=== PATIENT | female | born 1955 | race Caucasian/White ===

== ENCOUNTER 2020-12-31 20:40 | Emergency (ER) | payer MEDICARE, OTHER ==
[2020-12-31] MEDS: Sodium Chloride 0.9% 10 ML Syringe FLUSH ONE ×2 (22:50→23:05)
[2020-12-31] MEDS ORDERED: Iopamidol 612 MG/ML 100 ML Bottle IV SCH (23:00)
[2020-12-31] MEDS ORDERED: Sodium Chloride 0.9% 100 ML IV SCH (23:00)
--- NOTE | 2021-01-01 00:10 | CRLCT ---
For Patients: As a result of the Century Cures Act, medical imaging exams and procedure reports are released immediately into your electronic medical record. You may view this report before your referring provider. If you have questions, please contact your health care provider. Indication: Constipation Technique: Contrast enhanced axial CT imaging through the abdomen and pelvis. 100 mL Isovue-300 contrast agent was administered intravenously. Sagittal and coronal reconstructions are provided. Comparison: None Findings: There is diverticulosis of the descending and sigmoid colon. Superimposed circumferential wall thickening involving the distal sigmoid colon, with surrounding edema are consistent with changes of acute diverticulitis. There is no extraluminal air to suggest perforation. There is no pericolonic abscess. Remainder of the colon is unremarkable. The appendix is noninflamed. There is normal caliber of the small bowel. Surgical changes at the gastroesophageal junction suggests prior fundoplication. No abnormalities are demonstrated relating to the liver, spleen, pancreas, adrenal glands, and kidneys. Cholecystectomy clips are noted. The portal vein is patent. The abdominal aorta is normal in caliber. There is no abdominal or pelvic lymphadenopathy. The urinary bladder, uterus, and right ovary are unremarkable. A small cystic focus is noted in the left ovary, likely of no clinical significance. The osseous structures are unremarkable. The included lung bases are clear. Impression: Acute diverticulitis of the distal sigmoid colon. No evidence of colonic perforation or pericolonic abscess. Please note that all CT scans at this facility use dose modulation, iterative reconstruction, and/or weight-based dosing when appropriate to reduce radiation dose to as low as reasonably achievable. Dictated by Anneliese Guerrero MD @ 01/01/2021 12:09:30 AM (Electronically Signed)
[2021-01-01] MEDS ORDERED: Levofloxacin/Dextrose 5%-Water 750 MG in Premix Bag 1 BAG IV ONE (00:27)
[2021-01-01] MEDS ORDERED: metroNIDAZOLE/Normal Saline 500 MG in Premix Bag 1 BAG IV ONE (00:28)
[2021-01-01] MEDS ORDERED: Magnesium Citrate Solution 296 ML Bottle PO ONE (00:29)
--- NOTE | 2021-01-01 00:38 | EDM.PDOC ---
ED HPI GENERAL MEDICAL PROBLEM - General Chief Complaint: Gastrointestinal Problem Stated Complaint: 3-4 DAYS WITHOUT BOWEL MOVEMENT Time Seen by Provider: 01/01/21 00:29 Source of Information: Reports: Patient History Limitations: Reports: No Limitations - History of Present Illness INITIAL COMMENTS - FREE TEXT/NARRATIVE: pt is having difficulty passing gas and she has not had a stool for 3-4 days. She normally has loose stools. She has not carley vomiting. She feels like her abdoman is distended but she is not having severe pain. Onset: Gradual, Other ( last 2-3 days. ) Duration: Day(s): Location: Reports: Abdomen Associated Symptoms: Reports: Loss of Appetite, Other ( constipation) Abdomen Pain Score (Numeric/FACES): 4 - Related Data Allergies Allergy/AdvReac Type Severity Reaction Status Date / Time No Known Allergies Allergy Verified 01/06/21 07:33 Home Meds: Home Meds Erythromycin Base [Erythromycin 0.5% Ophth Oint] 1 dose TOP DAILY 06/13/13 [History] Ciprofloxacin [Ciprofloxacin HCl] 500 mg PO BID 01/06/21 [History] metroNIDAZOLE [Metronidazole] 500 mg PO TID 01/06/21 [History] Past Medical History HEENT History: Reports: Other (See Below) Other HEENT History: chronic dry eye Gastrointestinal History: Reports: Chronic Diarrhea [employer] History: Reports: Musculoskeletal History: Reports: Arthritis - Infectious Disease History Infectious Disease History: Reports: Chicken Pox, Measles - Past Surgical History GI Surgical History: Reports: Cholecystectomy, Radha Fundoplication Musculoskeletal Surgical History: Reports: Other (See Below) Other Musculoskeletal Surgeries/Procedures:: plate to wrist and ankle Social & Family History - Tobacco Use Tobacco Use Status *Q: Never Tobacco User - Caffeine Use Caffeine Use: Reports: Coffee, Tea - Recreational Drug Use Recreational Drug Use: No ED ROS GENERAL - Review of Systems Review Of Systems: See Below Constitutional: Reports: Weakness, Decreased Appetite HEENT: Reports: No Symptoms Respiratory: Reports: No Symptoms Cardiovascular: Reports: No Symptoms Endocrine: Reports: No Symptoms GI/Abdominal: Reports: Abdominal Pain, Constipation, Other ( feeling of being bloated. ) : Reports: No Symptoms Musculoskeletal: Reports: No Symptoms Skin: Reports: No Symptoms Neurological: Reports: No Symptoms ED EXAM, GI/ABD - Physical Exam Exam: See Below Text/Narrative:: pt comes with a history of having no stools for the past 3-4 days. She is having difficulty passing gas. She normally has looser stools. Exam Limited By: No Limitations General Appearance: Alert, Mild Distress Ears: Normal TMs Nose: Normal Inspection Throat/Mouth: Normal Inspection Head: Atraumatic Respiratory/Chest: No Respiratory Distress Cardiovascular: Regular Rate, Rhythm GI/Abdominal Exam: Other (pt had mild tenderness in the left upper abdoman. ) (Female) Exam: Deferred Rectal (Female) Exam: Deferred Back Exam: Normal Inspection Extremities: Normal Inspection Neurological: Alert, Oriented, Normal Cognition Psychiatric: Anxious Course - Vital Signs Last Recorded V/S: Last Vital Signs Temp 36.7 C 12/31/20 21:20 Pulse 83 12/31/20 21:20 Resp 16 12/31/20 21:20 BP 147/82 H 12/31/20 21:20 Pulse Ox 95 12/31/20 21:20 - Orders/Labs/Meds Labs: Laboratory Tests 12/31/20 12/31/20 12/31/20 Range/Units 21:40 21:48 21:48 WBC 8.0 (4.5-11.0) K/uL RBC 4.46 (3.30-5.50) M/uL Hgb 13.0 (12.0-15.0) g/dL Hct 40.0 (36.0-48.0) % MCV 90 (80-98) fL MCH 29 (27-31) pg MCHC 33 (32-36) % Plt Count 395 (150-400) K/uL Neut % (Auto) 64.1 (36-66) % Lymph % (Auto) 20.8 L (24-44) % [place] % (Auto) 12.3 H (2-6) % Eos % (Auto) 2.1 (2-4) % Baso % (Auto) 0.7 (0-1) % Sodium 140 (140-148) mmol/L Potassium 4.2 (3.6-5.2) mmol/L Chloride 102 (100-108) mmol/L Carbon Dioxide 29 (21-32) mmol/L Anion Gap 8.9 (5.0-14.0) mmol/L BUN 14 (7-18) mg/dL Creatinine 0.8 (0.6-1.0) mg/dL Est Cr Clr Drug Dosing 62.24 mL/min Estimated GFR (MDRD) > 60 (>60) Glucose 97 (74-106) mg/dL Calcium 8.6 (8.5-10.1) mg/dL Total Bilirubin 0.5 (0.2-1.0) mg/dL AST 17 (15-37) U/L ALT 30 (12-78) U/L Alkaline Phosphatase 91 (46-116) U/L C-Reactive Protein 7.44 H (0.0-0.3) mg/dL Total Protein 7.0 (6.4-8.2) g/dL Albumin 3.6 (3.4-5.0) g/dL Globulin 3.4 (2.3-3.5) g/dL Albumin/Globulin Ratio 1.1 L (1.2-2.2) Meds: Medications Discontinued Medications Generic Name Dose Route Start Last Admin Trade Name Freq PRN Reason Stop Dose Admin Sodium Chloride 100 mls @ 3 mls/sec 12/31/20 23:00 12/31/20 23:05 Normal Saline IV 3 mls/sec ASDIRECTED KATELYN Administration Levofloxacin/Dextrose 750 mg/ 150 mls @ 100 mls/hr 01/01/21 00:27 01/01/21 00:50 Premix IV 01/01/21 01:56 100 mls/hr ONETIME ONE Administration Metronidazole 500 mg/ Premix 100 mls @ 100 mls/hr 01/01/21 00:28 01/01/21 00:50 IV 01/01/21 01:27 100 mls/hr ONETIME ONE Administration Iopamidol 100 ml 12/31/20 23:00 12/31/20 23:05 Iopamidol 612 Mg/Ml 100 Ml Bottle IV 100 ml . DIRECTED KATELYN Administration Magnesium Citrate 296 ml 01/01/21 00:29 01/01/21 00:58 Magnesium Citrate Solution 296 Ml Bottle PO 01/01/21 00:30 296 ml ONETIME ONE Administration Ondansetron HCl 4 mg 01/01/21 02:10 01/01/21 02:17 Ondansetron 4 Mg/2 Ml Sdv IVPUSH 01/01/21 02:11 4 mg ONETIME ONE Administration Sodium Chloride 10 ml 12/31/20 22:49 12/31/20 23:05 Sodium Chloride 0.9% 10 Ml Syringe FLUSH 12/31/20 22:50 10 ml ONETIME ONE Administration - Re-Assessments/Exams Free Text/Narrative Re-Assessment/Exam: 01/01/21 00:43 flat and upriht was obtained which showed dilated loops of bowel in the left upper abdoman. A rectal exam revealed no stool in the rectum. A cat scan of the abdoman was obtained which showed acute diverticulitis of the sigmoid colon. There is no suggestion of perforation. Pt was given levoquin 750 iv and flagyl 500mg iv . She did drink a bottle of mag citrate. 01/11/21 22:33 she did drink 1/2 bottle of mag citrate and she had multiple loose stools before leaving the ER Departure - Departure Time of Disposition: 02:35 Disposition: Home, Self-Care 01 Condition: Fair Clinical Impression: Diverticulitis - Discharge Information Instructions: Diverticulitis Referrals: Teddy Zavaleta MD [Primary Care Provider] - Forms: ED Department Discharge Care Plan Goals: While inflamed use low fiber foods. Try to get the stools to start coming with some mag citrate and later strained prunes. Appt with Dr Zavaleta in 2 days. Cipro 500mg Twice (2) daily, Flagyl 500mg Three (3) times per day. Sepsis Event Note (ED) - Evaluation Sepsis Screening Result: No Definite Risk
[2021-01-01] MEDS ORDERED: Ondansetron 4 MG/2 ML SDV IVPUSH ONE (02:10)
--- NOTE | 2021-01-01 09:14 | CR ---
Abdomen 2V AP Flat Upright CLINICAL HISTORY: Constipation FINDINGS: There are scattered air-filled loops of small bowel with a few scattered air-fluid levels. Gas pattern is nonspecific. There is gas and feces throughout the colon. No free air is seen. There is previous epigastric surgery IMPRESSION: Mild small bowel dilatation a nonspecific pattern No free air. Fecal retention right colon
== END 2021-01-01 02:34 | disposition home or self-care (01) ==
LOC: JP.ED 20:40
DX: K57.32 Diverticulitis of large intestine without perforation or abscess without bleeding (principal)
CPT/HCPCS: 36415; 74019; 74177; 80053; 85025; 86140; 96365; 96368; 96375; 99284; A9270; J1956; J2405; J3490; Q9967

== ENCOUNTER 2021-01-06 07:11 | Emergency (ER) | payer MEDICARE, OTHER ==
--- NOTE | 2021-01-06 07:59 | EDM.PDOC ---
ED HPI GENERAL MEDICAL PROBLEM - General Chief Complaint: Abdominal Pain Stated Complaint: DIVERTICULITIS ISSUES PER PATIENT Time Seen by Provider: 01/06/21 07:43 Source of Information: Reports: Patient History Limitations: Reports: No Limitations - History of Present Illness INITIAL COMMENTS - FREE TEXT/NARRATIVE: 65-year-old female who was seen in the emergency room 4 days ago with decreased bowel movements and fullness in her abdomen, diagnosed with diverticulitis. Started on IV antibiotics initially then oral antibiotics as an outpatient. She was rechecked 2 days ago by her primary provider and was encouraged to continue with the oral antibiotics. She is back today because she is "weak", has a persistent foamy reflux and just does not feel like she is progressing. She is stilling having some lower abdominal discomfort. No fevers or chills, some loose stools, she is taking stool softeners and drinking water. She is just tired of being sick. She has not had her Covid vaccinations. She does not complain of shortness of breath or cough. Duration: Day(s): Location: Reports: Abdomen (Lower abdominal discomfort) Associated Symptoms: Reports: Weakness, Other (She complains of a persistent foamy respiratory or gastric reflux) Abdomen Pain Score (Numeric/FACES): 2 - Related Data Allergies Allergy/AdvReac Type Severity Reaction Status Date / Time No Known Allergies Allergy Verified 01/06/21 07:33 Home Meds: Home Meds Erythromycin Base [Erythromycin 0.5% Ophth Oint] 1 dose TOP DAILY 06/13/13 [History] Ciprofloxacin [Ciprofloxacin HCl] 500 mg PO BID 01/06/21 [History] metroNIDAZOLE [Metronidazole] 500 mg PO TID 01/06/21 [History] Past Medical History HEENT History: Reports: Other (See Below) Other HEENT History: chronic dry eye Gastrointestinal History: Reports: Chronic Diarrhea, Diverticulosis [employer] History: Reports: Musculoskeletal History: Reports: Arthritis - Infectious Disease History Infectious Disease History: Reports: Chicken Pox, Measles - Past Surgical History GI Surgical History: Reports: Cholecystectomy, Radha Fundoplication Musculoskeletal Surgical History: Reports: Other (See Below) Other Musculoskeletal Surgeries/Procedures:: plate to wrist and ankle Social & Family History - Tobacco Use Tobacco Use Status *Q: Never Tobacco User - Caffeine Use Caffeine Use: Reports: Coffee, Tea - Recreational Drug Use Recreational Drug Use: No ED ROS GENERAL - Review of Systems Review Of Systems: See Below Constitutional: Reports: Malaise, Decreased Appetite. Denies: Fever, Chills HEENT: Reports: No Symptoms Respiratory: Denies: Shortness of Breath, Cough Cardiovascular: Denies: Chest Pain, Palpitations Endocrine: Reports: Fatigue GI/Abdominal: Reports: Abdominal Pain, Decreased Appetite. Denies: Vomiting : Reports: No Symptoms Skin: Reports: No Symptoms Neurological: Reports: Weakness ED EXAM, GENERAL - Physical Exam Exam: See Below Exam Limited By: No Limitations General Appearance: Alert, No Apparent Distress, Other (Patient is tearful, appears tired) Eye Exam: Bilateral Eye: Normal Inspection (Good hydration, no jaundice) Throat/Mouth: Normal Inspection Head: Atraumatic Respiratory/Chest: No Respiratory Distress Cardiovascular: Regular Rate, Rhythm. No: Tachycardia GI/Abdominal: Soft, Tender (Tender to palpation across the lower abdomen, left lower quadrant worse than the right but no significant guarding or rebound), Other (Somewhat hypoactive bowel sounds but present) Extremities: Normal Inspection. No: Pedal Edema Neurological: Alert, Oriented Psychiatric: Depressed Mood, Flat Affect, Tearful Skin Exam: Warm, Dry Course - Vital Signs Last Recorded V/S: Last Vital Signs Temp 98.7 F 01/06/21 07:30 Pulse 82 01/06/21 07:30 Resp 16 01/06/21 07:30 BP 141/86 H 01/06/21 07:30 Pulse Ox 93 L 01/06/21 07:30 - Orders/Labs/Meds Labs: Laboratory Tests 01/06/21 01/06/21 01/06/21 Range/Units 07:52 08:03 08:03 WBC 6.5 (4.5-11.0) K/uL RBC 4.71 (3.30-5.50) M/uL Hgb 13.7 (12.0-15.0) g/dL Hct 42.0 (36.0-48.0) % MCV 89 (80-98) fL MCH 29 (27-31) pg MCHC 33 (32-36) % Plt Count 444 H (150-400) K/uL Neut % (Auto) 64.6 (36-66) % Lymph % (Auto) 19.4 L (24-44) % [place] % (Auto) 12.0 H (2-6) % Eos % (Auto) 3.1 (2-4) % Baso % (Auto) 0.9 (0-1) % Sodium 140 (140-148) mmol/L Potassium 4.6 (3.6-5.2) mmol/L Chloride 103 (100-108) mmol/L Carbon Dioxide 30 (21-32) mmol/L Anion Gap 6.9 (5.0-14.0) mmol/L BUN 11 (7-18) mg/dL Creatinine 0.9 (0.6-1.0) mg/dL Est Cr Clr Drug Dosing 55.33 mL/min Estimated GFR (MDRD) > 60 (>60) Glucose 99 (74-106) mg/dL Calcium 9.0 (8.5-10.1) mg/dL SARS-CoV-2 RNA (LALIT) Negative (NEGATIVE) - Re-Assessments/Exams Free Text/Narrative Re-Assessment/Exam: 01/06/21 07:59 CBC, BMP were repeated as well as a CT of the abdomen. Covid was obtained, results are pending. 01/06/21 09:07 Labs were reassuring, white count was normal, BMP normal, and CT confirmed that the inflammatory changes of diverticulitis were improving. Covid was negative. Patient was encouraged to continue with hydration, increase diet as tolerated, and continue with antibiotics until done. Departure - Departure Time of Disposition: 09:23 Disposition: Home, Self-Care 01 Clinical Impression: Diverticulitis - Discharge Information Instructions: Diverticulitis, [id number] Referrals: Teddy Zavlaeta MD [Primary Care Provider] - Forms: ED Department Discharge Care Plan Goals: Continue with antibiotics as prescribed, advance diet and activity as tolerated. Stay hydrated and consider rechecking in 2 to 3 days if not improving satisfactorily. Sepsis Event Note (ED) - Focused Exam Vital Signs: Vital Signs Temp Pulse Resp BP Pulse Ox 01/06/21 07:30 98.7 F 82 16 141/86 H 93 L 01/06/21 07:25 98.7 F 82 16 141/86 H 93 L
--- NOTE | 2021-01-06 08:59 | CT ---
Abdomen Pelvis wo Cont CLINICAL HISTORY: Diverticulitis COMPARISON: 12/31/2020. TECHNIQUE: Axial tomographic images are obtained from the dome of the diaphragm to the pubic symphysis without IV contrast enhancement. No oral contrast was used. The dosage reduction and iterative reconstruction techniques employed. FINDINGS: The lung bases are clear no free air is identified.. There has been a previous Radha procedure The liver shows no mass or biliary dilatation. The gallbladder has been removed. The spleen has a normal size and shape. The pancreas shows no mass or inflammatory change. The adrenal glands appear normal bilaterally. There is a nonobstructing punctate calcification in the midpole of the left kidney. The ureters have a normal course and caliber. The bladder has a normal contour. There are cyst tiny calcifications in the region of the urethra or periureteric soft tissues. The aorta shows atheromatous plaque without calcification. There is no suspicious retroperitoneal adenopathy. The small intestinal configuration is nonacute. There is gas and feces throughout the colon. Patient has moderate sigmoid diverticulosis. There is a section of thickening in the mid to distal sigmoid. This has diminished slightly since prior study. Inflammatory change and stranding in the pericolic fat has diminished since prior study. No abnormal fluid collections are identified. IMPRESSION: Mild thickening of the sigmoid colon with the decrease in inflammatory change when compared to the study from 12/31/2020 Nonobstructing punctate left renal calculus
== END 2021-01-06 09:23 | disposition home or self-care (01) ==
LOC: JP.ED 07:11
DX: K57.32 Diverticulitis of large intestine without perforation or abscess without bleeding (principal); Z20.822 Contact with and (suspected) exposure to COVID-19
CPT/HCPCS: 36415; 74176; 80048; 85025; 99284; U0002

== ENCOUNTER 2021-06-15 06:28 | Day surgery (SDC) | payer MEDICARE, OTHER ==
[2021-06-15] MEDS ORDERED: Dextrose 5%-Lactated Ringers 1,000 ML IV SCH (07:00)
[2021-06-15] MEDS ORDERED: Propofol 200 MG/20 ML SDV ONE (07:13)
[2021-06-15] MEDS ORDERED: Midazolam 1 MG/ML 2 ML SDV ONE (07:13)
[2021-06-15] MEDS ORDERED: fentaNYL 100 MCG/2 ML SDV ONE (07:13)
[2021-06-15] MEDS ORDERED: Pantoprazole 40 MG Vial IVPUSH ONE (09:10)
== END 2021-06-15 10:50 | disposition home or self-care (01) ==
LOC: JP.SDS 06:28
PROVIDERS: ATTEND Surgery
DX: K21.00 Gastro-esophageal reflux disease with esophagitis, without bleeding (principal); K44.9 Diaphragmatic hernia without obstruction or gangrene; K29.60 Other gastritis without bleeding; Z98.890 Other specified postprocedural states
CPT/HCPCS: 87081; 88305; C9113; J2250; J2704; J3010; J7121

== ENCOUNTER 2024-09-10 10:25 | Emergency (ER) | payer MEDICARE, OTHER ==
[2024-09-10 11:30] LABS: BASOPHILS ABSOLUTE AUTO 0.08 K/uL (0.00-0.10); BASOPHILS PERCENT AUTO 0.7 % (0.1-1.3); EOSINOPHILS ABSOLUTE AUTO 0.06 K/uL (0.00-0.40); EOSINOPHILS PERCENT AUTO 0.5 % (0.0-5.4); HEMATOCRIT 40.8 % (34.3-46.0); IMMATURE GRAN ABSOLUTE AUTO 0.05 K/uL (0.00-0.23); IMMATURE GRAN PERCENT AUTO 0.4 % (0.0-0.7); LYMPHOCYTES ABSOLUTE AUTO 1.12 K/uL (0.8-3.3); LYMPHOCYTES PERCENT AUTO 9.2 % (11.4-47.7); MEAN CORPUSCULAR HGB CONC 31.9 g/dL (31.6-35.5); MEAN CORPUSCULAR VOLUME 91.1 fL (81.4-99.0); MONOCYTES ABSOLUTE AUTO 0.87 K/uL (0.20-0.90); MONOCYTES PERCENT AUTO 7.2 % (3.3-12.6); NEUTROPHILS ABSOLUTE AUTO 9.95 K/uL (1.0-7.6); PLATELET COUNT,PLT 318 K/uL (130-375); RED BLOOD CELL COUNT 4.48 M/uL (3.77-5.24); WHITE BLOOD CELL COUNT,WBC 12.1 K/uL (3.2-11.0)
[2024-09-10 11:53] LABS: ALANINE AMINOTRANSFERASE,ALT 30 U/L (12-78); ALBUMIN 3.5 g/dL (3.4-5.0); ALKALINE PHOSPHATASE 117 U/L (46-116); ASPARTATE AMNIOTRANSFERASE,AST 18 U/L (15-37); BILIRUBIN TOTAL 0.9 mg/dL (0.2-1.0); BLOOD UREA NITROGEN,BUN 18 mg/dL (7-18); CALCIUM 9.3 mg/dL (8.5-10.1); CARBON DIOXIDE,CO2 31 mmol/L (21-32); CHLORIDE,CL 103 mmol/L (100-108); CREATININE 0.9 mg/dL (0.6-1.0); EST CRCL DRUG DOSING (CG) 52.34 mL/min; ESTIMATED GFR 69 mL/min (>60); GLUCOSE RANDOM 96 mg/dL (74-106); POTASSIUM,K 4.8 mmol/L (3.6-5.2); SODIUM,NA 139 mmol/L (140-148)
[2024-09-10 11:54] LABS: ANION GAP 9.8 mmol/L (5.0-14.0); TROPONIN I HIGH SENSITIVITY < 4.0 pg/mL (<=60.3)
[2024-09-10 13:02] LABS: APPEARANCE,URINE SLIGHTLY CLOUDY (CLEAR); BILIRUBIN,URINE NEGATIVE (NEGATIVE); COLOR,URINE YELLOW (YELLOW); GLUCOSE,URINE NEGATIVE (NEGATIVE); KETONES,URINE NEGATIVE (NEGATIVE); LEUKOCYTE ESTERASE,URINE TRACE (NEGATIVE); NITRITE,URINE NEGATIVE (NEGATIVE); OCCULT BLOOD,URINE NEGATIVE (NEGATIVE); PROTEIN,URINE NEGATIVE (NEGATIVE); UROBILINOGEN,URINE 0.2 EU/dL (0.2-1.0)
[2024-09-10 13:13] LABS: AMORPHOUS SEDIMENT,URINE FEW; BACTERIA,URINE FEW; EPITHELIAL CELLS,URINE MANY; MUCUS,URINE NOT SEEN; RBC,URINE 0-5 (0-5); WBC,URINE 0-5 (0-5)
== END 2024-09-10 13:44 | disposition home or self-care (01) ==
LOC: JP.ED 10:25
DX: R55 Syncope and collapse (principal); K21.9 Gastro-esophageal reflux disease without esophagitis; Z79.899 Other long term (current) drug therapy
CPT/HCPCS: 36415; 71046; 71046-26; 80053; 81001; 84484; 85025; 93005; 99285